=== PATIENT | female | born 1995 | race Caucasian/White ===

== ENCOUNTER 2018-01-28 09:35 | Emergency (ER) | payer SELFPAY ==
[~2018-01-28] VITALS: Ht 167.6 cm; Wt 100.0 kg
[~2018-01-28 09:35] MED LIST: SILV1CRE59 TOP; TYLE3 PO; ZYRT10TA12 PO
[2018-01-28 09:37] VITALS: BP 132/77; PULSE 104; RESP 16; TEMP 98.4; O2SAT 99
[2018-01-28] MEDS ORDERED: CETI-1 PO (09:54)
[2018-01-28] MEDS ORDERED: KETOROLAC TROMETHAMINE 60 MG/2 ML (IM) VIAL IM ONE (10:15)
[2018-01-28] MEDS ORDERED: ORPHENADRINE INJ 60 MG/2 ML AMP IM ONE (10:15)
[2018-01-28 10:29] LABS: BACTERIA, URINE OCC /hpf; BILIRUBIN, URINE NEG (NEG); BLOOD, URINE NEG (NEG); GLUCOSE,URINE NEG (NEG); HYALINE CAST, URINE 13 /lpf (RARE); KETONE, URINE NEG (NEG); MUCUS URINE MOD /lpf (OCC); NITRITE,URINE NEG (NEG); SQUAMOUS EPITHELIAL CELL URINE 27 /hpf (0-5); URINE COLOR YELLOW (YELLW/STRAW); URINE LEUKOCYTE ESTERASE LARGE (NEG)
--- NOTE | 2018-01-28 10:31 | PD ---
HPI Chief Complaint: Back/ Neck Pain or Injury Time Seen by Provider: 10:02 Travel History International Travel<30 days: No Contact w/Intl Traveler<30days: No Traveled to known affect area: No History of Present Illness HPI 23-year-old female that presents to the ED for evaluation of lower back pain. Per patient she has had some pain on her back for about 3 months now since November but she is been doing well until yesterday. Per patient she was shopping yesterday when she felt like her left leg leg go on her. She has been having pain on her back since. Per patient the pain is severe. 10 out of 10. Causes her little discomfort especially with standing. Denies any prior injuries or surgeries. Per patient she took an aspirin with minimal relief. Pain stays mainly on the back and gets worse with standing and walking. Denies possibility of . No urinary or bowel movement issues. No numbness, drooling, weakness. No chest pain or shortness of breath. No other medical issues. PFSH Past Medical History Asthma: Yes Diminished Hearing: No Immunizations Current: Yes Tetanus Vaccination: Unknown Influenza Vaccination: No ?: Unknown Past Surgical History Surgical History: No Previous Surgery Social History Alcohol Use: Yes (occ) Tobacco Use: No Substance Use: No Allergies-Medications (Allergen,Severity, Reaction): Coded Allergies: egg (Unverified Adverse Reaction, Intermediate, CONGESTION, 01/28/18) Reported Meds & Prescriptions Reported Meds & Active Scripts Active Prednisone 20 Mg Tab 20 Mg PO BID PRN 5 Days Robaxin (Methocarbamol) 500 Mg Tab 500 Mg PO TID Diclofenac Sodium DR (Diclofenac Sodium) 75 Mg Tabdr 75 Mg PO BID PRN Bactrim DS (Sulfamethoxazole-Trimethoprim) 800-160 Mg Tab 1 Tab PO BID 7 Days Reported Zyrtec (Cetirizine HCl) 10 Mg Tablet 1 Tab PO DAILY Review of Systems Except as stated in HPI: all other systems reviewed are Neg Physical Exam Narrative GENERAL: SKIN: Warm and dry. HEAD: Atraumatic. Normocephalic. EYES: Pupils equal and round. No scleral icterus. No injection or drainage. ENT: No nasal bleeding or discharge. Mucous membranes pink and moist. Tongue is midline. No uvula deviation. NECK: Trachea midline. No JVD. CARDIOVASCULAR: Regular rate and rhythm. No murmurs, S3, S4. RESPIRATORY: No accessory muscle use. Clear to auscultation. Breath sounds equal bilaterally. GASTROINTESTINAL: Abdomen soft, non-tender, nondistended. Hepatic and splenic margins not palpable. MUSCULOSKELETAL: Extremities without clubbing, cyanosis, or edema. No obvious deformities. Full range of motion of the upper and lower extremities bilaterally. 2+ pulses bilaterally. Pain with bending of the back. Some reproducible pain on the lumbar musculature more on the sacrum from the lumbar spine itself. Straight leg test positive on the right. Sensation intact bilaterally. DTRs are 2+ bilaterally. No thoracic or cervical spine tenderness to palpation. NEUROLOGICAL: Awake and alert. No obvious cranial nerve deficits. Motor grossly within normal limits. Five out of 5 muscle strength in the arms and legs. Normal speech. PSYCHIATRIC: Appropriate mood and affect; insight and judgment normal. Data Data Last Documented VS Vital Signs Date Time Temp Pulse Resp B/P (MAP) Pulse Ox O2 Delivery O2 Flow Rate FiO2 01/28/18 09:37 98.4 104 16 132/77 (95) 99 Orders Orders Urinalysis - C+S If Indicated (01/28/18 09:44) Ed Urine Pregnancytest Poc (01/28/18 09:44) Ct Lumb Spine W/O Contrast (01/28/18 ) Orphenadrine Inj (Norflex Inj) (01/28/18 10:15) Ketorolac Inj (Toradol Inj) (01/28/18 10:15) Mandatory Outpatient Referral (01/28/18 11:14) Labs Laboratory Tests Test 01/28/18 10:00 Urine Color YELLOW Urine Turbidity HAZY Urine pH 6.0 Urine Specific [place] 1.030 Urine Protein TRACE mg/dL Urine Glucose (UA) NEG mg/dL Urine Ketones NEG mg/dL Urine Occult Blood NEG Urine Nitrite NEG Urine Bilirubin NEG Urine Urobilinogen 2.0 MG/DL Urine Leukocyte Esterase LARGE Urine RBC LESS THAN 1 /hpf Urine WBC 1 /hpf Urine Squamous Epithelial Cells 27 /hpf Urine Bacteria OCC /hpf Urine Hyaline Casts 13 /lpf Urine Mucus MOD /lpf Microscopic Urinalysis Comment CULT NOT INDICATED MDM Medical Decision Making Medical Screen Exam Complete: Yes Emergency Medical Condition: Yes Medical Record Reviewed: Yes Interpretation(s) Last Impressions Lumbar Spine CT 01/28/18 0000 Signed Impressions: CONCLUSION: 1. Disc bulging L4-5 and L5-S1, worse at L5-S1. MRI would be of benefit. Differential Diagnosis Back pain versus muscle strain versus muscle spasm versus spinal stenosis versus herniated disc versus fracture Narrative Course 23-year-old female that presents to the ED for evaluation of back pain. Patient was properly examined and was found to have signs and symptoms of unclear etiology but likely muscular skeletal. CT was ordered. Patient was given IM injections for pain medication. Urine was ordered to rule out any sign of infection as well as . This was negative. CT showed some disc bulging per radiologist and he recommended MRI. Case was discussed in lenght with my attending Dr Romero who was made aware of findings and recommends close follow up outpatient and pain management. Patient was provided with all the information and mandatory referral ordered for her. Some improvement per patient with meds. This time patient will be sent home with prescriptions for diclofenac sodium and robaxin and prednisone. Told to follow up closely with PCP or neurosurgeon. See ED if worsening symptoms. Given note for work. Ice or heat as needed. Diagnosis Primary Impression: Bulging lumbar disc Patient Instructions: General Instructions Departure Forms: Tests/Procedures, Work Release Enter return to work date: Jan 30, 2018 Additional Instructions: Take medications as prescribed. Follow-up with PCP. See ED for any worsening symptoms. Do not drink or drive while taking pain medication. Apply ice or heat as needed for pain Med/Other Pt SpecificInfo: Prescription(s) given Scripts Prednisone (Prednisone) 20 Mg Tab 20 MG PO BID Y for PAIN SCALE 1 TO 10 for 5 Days, #10 TAB 0 Refills Prov: Wu Romero MD 01/28/18 Methocarbamol (Robaxin) 500 Mg Tab 500 MG PO TID for Muscle Spasm, #20 TAB 0 Refills Prov: Wu Romero MD 01/28/[address] (Diclofenac Sodium DR) 75 Mg Tabdr 75 MG PO BID Y for PAIN SCALE 1 TO 10, #20 TAB 0 Refills Prov: Wu Romero MD 01/28/18 Sulfamethoxazole-Trimethoprim (Bactrim DS) 800-160 Mg Tab 1 TAB PO BID for Infection for 7 Days, #14 TAB 0 Refills Prov: Wu Romero MD 01/28/18 Disposition: 01 DISCHARGE HOME Condition: Stable Gilson Frost Jan 28, 2018 10:31
[2018-01-28] MEDS ORDERED: ROBA500T PO (10:32)
[2018-01-28] MEDS ORDERED: BACT800T5 PO (10:32)
[2018-01-28] MEDS ORDERED: DICL75TA PO (10:32)
--- NOTE | 2018-01-28 11:07 | RADRPT ---
EXAM DATE: The [facility] and the immediately thank you AGE/SEX: 23 years / Female INDICATIONS: Lower back pain. No known injury. CLINICAL DATA: This is the patient's initial encounter. Patient reports that signs and symptoms have been present for 3 months and indicates a pain score of 9/10. MEDICAL/SURGICAL HISTORY: Asthma. None. RADIATION DOSE: 35.86 CTDI (mGy) COMPARISON: No prior exams available for comparison. TECHNIQUE: Contiguous axial images were acquired with a multirow detector CT scanner without contras t. Multiplanar reconstructions in the sagittal and coronal plane were also performed. Using automate d exposure control and adjustment of the mA and/or kV according to patient size, radiation dose was k ept as low as reasonably achievable to obtain optimal diagnostic quality images. FINDINGS: Vertebrae: Normal vertebral body height. Alignment: Normal. No subluxation. T12-L1: The thecal sac has a normal diameter. No evidence of disc bulge or protrusion. The neural foramina are patent bilaterally. L1-L2: The thecal sac has a normal diameter. No evidence of disc bulge or protrusion. The neural f oramina are patent bilaterally. L2-L3: The thecal sac has a normal diameter. No evidence of disc bulge or protrusion. The neural f oramina are patent bilaterally. L3-L4: The thecal sac has a normal diameter. No evidence of disc bulge or protrusion. The neural f oramina are patent bilaterally. L4-L5: Minimal Disc bulging eccentric to the right without significant neural compression. Mild degen erative changes in the facets. L5-S1: Disc bulging eccentric to the right causing some flattening the anterior thecal space touchin g the right L5 and the right S1 nerve root. Mild degenerative changes in the facets. CONCLUSION: 1. Disc bulging L4-5 and L5-S1, worse at L5-S1. MRI would be of benefit. Electronically signed by: Martin Eckert MD 01/28/2018 11:06 AM EDT
[2018-01-28] MEDS ORDERED: PRED20 PO (11:14)
== END 2018-01-28 11:30 | disposition home or self-care (01) ==
LOC: NEPK 09:35
DX: M51.26 Other intervertebral disc displacement, lumbar region (principal)
CPT/HCPCS: 72131; 81001; 84703; 96372; 99284; J1885; J2360